=== PATIENT | male | born 1975 | race Caucasian/White ===

== ENCOUNTER 2021-12-18 10:52 | Emergency (ER) | payer SELFPAY ==
[~2021-12-18] VITALS: Ht 170.2 cm; Wt 99.8 kg
[2021-12-18 11:32] VITALS: BP 141/77
[2021-12-18] MEDS ORDERED: IBUP-2213 PO (13:01)
[2021-12-18] MEDS ORDERED: HYD1C TP (13:01)
--- NOTE | 2021-12-18 13:08 | NUR ---
PT PLACED IN RIGHT 4TH FINGER DIGIT SPLINT AND WRAPED WITH 1" GUAZE ROLL. [facility] WNL BEFORE AND AFTER.
--- NOTE | 2021-12-18 13:19 | NUR ---
NO NURSING CARE RENDERED- Patient discharged with v/s stable. Written and verbal after care instructions given and explained. Patient alert, oriented and verbalized understanding of instructions. Police with in custody. All questions addressed prior to discharge. ID band removed. Patient advised to follow up with PMD. IBU,HYDROCORTTISONE Rx given. Patient educated on indication of medication including possible reaction and side effects. Opportunity to ask questions provided and answered.
[2021-12-18 13:20] VITALS: BP 132/72
== END 2021-12-18 13:19 | disposition home or self-care (01) ==
LOC: MED 10:52
DX: S60.221A Contusion of right hand, initial encounter (principal); M79.644 Pain in right finger(s); Z79.1 Long term (current) use of non-steroidal anti-inflammatories (NSAID); Z79.899 Other long term (current) drug therapy; W22.8XXA Striking against or struck by other objects, initial encounter; Y93.89 Activity, other specified; Y92.89 Other specified places as the place of occurrence of the external cause; Y99.8 Other external cause status
CPT/HCPCS: 73130; 99283